=== PATIENT | male | born 1965 | race Caucasian/White ===

== ENCOUNTER 2017-04-25 17:00 | Emergency (ER) | payer BC, SELFPAY ==
[2017-04-25 17:01] VITALS: BP 170/98; PULSE 71; RESP 14; TEMP 36.8; O2SAT 98; BMI 23.6
--- NOTE | 2017-04-25 17:33 | XR_ITS ---
XR hand RT min 3V COMPARISON: None HISTORY: Crush injury to little finger TECHNIQUE: AP lateral and oblique views FINDINGS: The carpal bones and metacarpals all appear intact. There is soft tissue swelling at the distal phalanx of little finger. There is a tiny and possible a avulsion flake fracture of the head of middle phalanx of little finger. The remaining phalanges all appear intact. There is mild diffuse soft tissue swelling of the hand. There are no foreign bodies. IMPRESSION: Focal soft tissue swelling distal phalanx little finger with probable a avulsion flake fracture which could be acute or old but suggest clinical correlation for tenderness at this site.
[2017-04-25 18:01] VITALS: BP 140/80; PULSE 74; RESP 16; O2SAT 100
--- NOTE | 2017-04-25 18:31 | HMH.EDGENADL ---
ED Disposition Clinical Impression: Laceration Finger laceration Qualifiers: Encounter type: initial encounter Finger: little finger Damage to nail status: without damage Foreign body presence: without foreign body Laterality: right Qualified Code(s): S61.216A - Laceration without foreign body of right little finger without damage to nail, initial encounter Disposition: Home, Self-Care Condition on Discharge: Fair Instructions: DI for Laceration Repair Additional Instructions: keep elevated and apply ice pack for 20 minutes per hour for 24 hour. Keep dry for 2 days and then may soak in water. Change dressing daily with Bactroban ointment and take antibiotic as directed. Prescriptions: Hydrocodone/Acetaminophen [Hydrocodone-Acetamin 5-325 mg] 1 each PO Q4H PRN 3 Days #18 tab PRN Reason: Severe Pain Mupirocin [Bactroban 2% Ointment 22gm tube] 1 applicatio TP DAILY 9 Days #1 tube Sulfamethoxazole/Trimethoprim [Bactrim DS tablet] 1 each PO BID 10 Days #20 tab Referrals: Provider,Referral, MD [Primary Care Provider] - Time of Disposition: 19:19 - Critical Care Critical Care Time: No Attestation: On 04/25/17, the high probability of a clinically significant, sudden or life threatening deterioration of the following system(s) required my full and direct attention, intervention and personal management. The time I documented below is in addition to time spent performing reported procedures but includes the following listed in this critical care notation. Medical Decision Making Vital Signs: 04/25/17 17:01 04/25/17 18:01 Temperature 98.2 F Temperature Source Oral Pulse Rate [Right Brachial] 71 74 Respiratory Rate 14 16 Blood Pressure [Right Arm] 170/98 140/80 Blood Pressure Mean [Right Arm] 122 100 Blood Pressure Source [Right Arm] Automatic Cuff Automatic Cuff Blood Pressure Position [Right Arm] Sitting Sitting 02 Sat by Pulse Oximetry 98 100 Oxygen Delivery Method Room Air Room Air Orders (Tests/Meds): ED MEDICATIONS Discontinued Medications Generic Name Dose Route Start Last Admin Trade Name Freq PRN Reason Stop Dose Admin Tetanus/Reduced Diphtheria/Acell Pertussis 0.5 ml 04/25/17 17:17 04/25/17 17:25 Adacel Tdap 0.5ml Syringe IM 04/25/17 17:18 0.5 ml .ONCE ONE Administration ORDERS Category Date Time Status Hand XR right minimum 3 views [XR hand RT min 3V] Stat Exams 04/25/17 17:33 Taken - Radiology Data #1 Image(s): Hand Image Reviewed: Yes I reviewed the patient's radiology results, Yes I discussed the image results w/the radiologist Small chip off 2nd phalanx near distal phalanx - Juan A Inquiry Pt receiving controlled substance: No Juan A was queried for this patient: No Reason not queried -: Emergent pt cond-no time General Adult HPI - General Chief complaint: Wound/Laceration Stated complaint: AO [id number] LAC RIGHT LITTLE Time Seen by Provider: 04/25/17 18:20 Mode of Arrival: Ambulatory Source of Information: Patient, Spouse Limitations: No Limitations Description of Symptoms (Recalled from ER Triage Doc. by RN): Pt smashed his right pinky finger in a gate. Has lac down the side - History of Present Illness HPI narrative: Pt got his right 5th finger caught between 2 pieces of metal and has a crush injury to the tip of the finger with a 2 cm laceration Onset (ago): hour(s) Location: right, upper extremity (right 5th finger) - Related Data Previous Rx's Medication Instructions Recorded Hydrocodone/Acetaminophen 1 each PO Q4H PRN 3 Days #18 tab 04/25/17 [Hydrocodone-Acetamin 5-325 mg] Mupirocin [Bactroban 2% Ointment 1 applicatio TP DAILY 9 Days #1 04/25/17 22gm tube] tube Sulfamethoxazole/Trimethoprim 1 each PO BID 10 Days #20 tab 04/25/17 [Bactrim DS tablet] Allergies Allergy/AdvReac Type Severity Reaction Status Date / Time Penicillins Allergy Verified 04/25/17 17:15 [facility] History I have reviewed the pat
--- NOTE | 2017-04-25 18:35 | ED_ITS ---
ED Disposition Clinical Impression: Laceration Finger laceration Qualifiers: Encounter type: initial encounter Finger: little finger Damage to nail status: without damage Foreign body presence: without foreign body Laterality: right Qualified Code(s): S61.216A - Laceration without foreign body of right little finger without damage to nail, initial encounter Disposition: Home, Self-Care Condition on Discharge: Fair Instructions: DI for Laceration Repair Additional Instructions: keep elevated and apply ice pack for 20 minutes per hour for 24 hour. Keep dry for 2 days and then may soak in water. Change dressing daily with Bactroban ointment and take antibiotic as directed. Prescriptions: Hydrocodone/Acetaminophen [Hydrocodone-Acetamin 5-325 mg] 1 each PO Q4H PRN 3 Days #18 tab PRN Reason: Severe Pain Mupirocin [Bactroban 2% Ointment 22gm tube] 1 applicatio TP DAILY 9 Days # 1 tube Sulfamethoxazole/Trimethoprim [Bactrim DS tablet] 1 each PO BID 10 Days #20 tab Referrals: Provider,Referral, MD [Primary Care Provider] - Time of Disposition: 19:19 - Critical Care Critical Care Time: No Attestation: On 04/25/17, the high probability of a clinically significant, sudden or life threatening deterioration of the following system(s) required my full and direct attention, intervention and personal management. The time I documented below is in addition to time spent performing reported procedures but includes the following listed in this critical care notation. Medical Decision Making Vital Signs: 04/25/17 17:01 04/25/17 18:01 Temperature 98.2 F Temperature Source Oral Pulse Rate [Right Brachial] 71 74 Respiratory Rate 14 16 Blood Pressure [Right Arm] 170/98 140/80 Blood Pressure Mean [Right Arm] 122 100 Blood Pressure Source [Right Arm] Automatic Cuff Automatic Cuff Blood Pressure Position [Right Arm] Sitting Sitting 02 Sat by Pulse Oximetry 98 100 Oxygen Delivery Method Room Air Room Air Orders (Tests/Meds): ED MEDICATIONS Discontinued Medications Generic Name Dose Route Start Last Admin Trade Name Freq PRN Reason Stop Dose Admin Tetanus/Reduced Diphtheria/Acell Pertussis 0.5 ml 04/25/17 17:17 04/25/17 17: 25 Adacel Tdap 0.5ml Syringe IM 04/25/17 17:18 0.5 ml .ONCE ONE Administration ORDERS Category Date Time Status Hand XR right minimum 3 views [XR hand RT min 3V] Stat Exams 04/25/17 17:33 Taken - Radiology Data #1 Image(s): Hand Image Reviewed: Yes I reviewed the patient's radiology results, Yes I discussed the image results w/the radiologist Small chip off 2nd phalanx near distal phalanx - Juna A Inquiry Pt receiving controlled substance: No Juan A was queried for this patient: No Reason not queried -: Emergent pt cond-no time General Adult HPI - General Chief complaint: Wound/Laceration Stated complaint: AO [id number] LAC RIGHT LITTLE Time Seen by Provider: 04/25/17 18:20 Mode of Arrival: Ambulatory Source of Information: Patient, Spouse Limitations: No Limitations Description of Symptoms (Recalled from ER Triage Doc. by RN): Pt smashed his right pinky finger in a gate. Has lac down the side - History of Present Illness HPI narrative: Pt got his right 5th finger caught between 2 pieces of metal and has a crush injury to the tip of the finger with a 2 cm lac
[2017-04-25 19:32] VITALS: BP 138/88; PULSE 78; RESP 14; TEMP 37; O2SAT 100
== END 2017-04-25 19:36 | disposition home or self-care (01) ==
PROVIDERS: Emergency Provider General Practice
DX: S61.216A Laceration without foreign body of right little finger without damage to nail, initial encounter (principal); S67.196A Crushing injury of right little finger, initial encounter
CPT/HCPCS: 12002; 73130; 90471; 90715; 99281; 99282

== ENCOUNTER 2017-04-29 13:03 | Emergency (ER) | payer BC, SELFPAY ==
[2017-04-29 13:14] VITALS: BP 132/78; PULSE 62; RESP 20; TEMP 37; O2SAT 99; BMI 23.6
--- NOTE | 2017-04-29 13:21 | HMH.EDUTC ---
[facility] [place] Disposition Clinical Impression: Avulsion fracture of middle phalanx of finger Qualifiers: Encounter type: sequela Fracture type: closed Qualified Code(s): S62.629S - Displaced fracture of medial phalanx of unspecified finger, sequela Laceration of finger of right hand with complication Qualifiers: Encounter type: subsequent encounter Qualified Code(s): S61.411D - Laceration without foreign body of right hand, subsequent encounter Disposition: Home, Self-Care Condition on Discharge: Good Additional Instructions: Continue bactrim Start clindamycin Elevate Compress hematoma monitor and if redness moves beyond marked line, follow up immediately. Follow up immediately for ANY sign of infection as we discussed. Take pictures from same angle daily. This will help to monitor progress See Dr. hunter tomorrow due to avulsion fracture involving joint with combination of infection. Remember, risk for joint infection higher. If you can't make it to , call and reschedule but a 48 hour follow up with someone, even NVC/ER, VERY important. Prescriptions: Clindamycin HCl [Clindamycin 300mg Cap] 300 mg PO QID #40 cap Referrals: Prabhakar Storey MD [Staff Physician] - (Tomorrow at 2:30. If something happens and you can't make it, be sure to call and reschedule but per ER MD, you need seen this week and he was willing to work you in tomorrow.) Time of Disposition: 13:33 Medical Decision Making - Medical Records Medical records reviewed: Yes: I reviewed the patient's medical records. MR Comment: prior ER visit and xray on 04/25/17 Vital Signs: 04/29/17 13:14 04/29/17 13:35 Temperature 98.6 F 98 F Temperature Source Temporal Artery Scan Pulse Rate 75 Pulse Rate [Left Brachial] 62 Respiratory Rate 20 20 Blood Pressure 133/78 Blood Pressure [Left Arm] 132/78 Blood Pressure Mean [Left Arm] 96 Blood Pressure Source [Left Arm] Automatic Cuff Blood Pressure Position [Left Arm] Sitting 02 Sat by Pulse Oximetry 99 Oxygen Delivery Method Room Air - Radiology Data #1 Image(s): Hand Image Reviewed: Yes I reviewed the patient's radiology image, Yes I have reviewed radiologist's interpretation 04/25/17 xray...avulsion fracture distal end second phalanx of 5th digit right hand - Physician Consults Physician Consulted: Dr. Dawson, ER Time: 13:15 Reason -: Pt condition Comment/Response: Discussed with Dr. Dawson ER . He came and examined pt. Does not feel laceration needs to be reopened. Encouraged pt to express hematoma multiple times a day, elevate, wear finger splint again, continue bactrim, start clindamycin, follow up with ortho and take daily pictures with cell phone. Additional Consult: marybeth Garcia, spoke to his staffMarisol Time: 13:20 Reason -: Pt condition Comment/Response: Discussed HPI, today's exam, xray results and Dr. Dawson's, ER MD, concerns. Can work in patient tomorrow at 2:30. - Juan A Inquiry Pt receiving controlled substance: No [facility] [place] HPI - General Stated complaint: right little finger check for infection Time Seen by Provider: 04/29/17 13:15 Mode of Arrival: Ambulatory Source of Information: Patient Limitations: No Limitations Description of Symptoms (Recalled from Triage Doc. by RN): PT ADVISES THAT HE HAD SUTURES PLACED IN LEFT INDEX FINGER ON THURSDAY AND HE NOW BELIEVES IT TO BE INFECTED. PT HAS REDNESS AND WARMTH NOTED TO THE AREA ABOVE THE FINGERNAIL. HEENT Symptoms (Recalled from RN notes): No Resp Symptoms (Recalled from RN notes): No Skin Symptoms (Recalled from RN notes): Yes (POSSIBLE INFECTION OF LEFT INDEX FINGER) MS Symptoms (Recalled from RN notes): No Functional Status (Recalled from RN notes): N/A - History of Present Illness Provider Complaint: c/o need for finger laceration reevalution. Redness and warmth noted since sutures placed Thursday. no fever, aches, chills. Taking bactrim and using bactroban as directed. - Related Data Previous Rx's Med
[2017-04-29 13:35] VITALS: BP 133/78; PULSE 75; RESP 20; TEMP 36.6; O2SAT 98
== END 2017-04-29 13:44 | disposition home or self-care (01) ==
PROVIDERS: Emergency Provider Nurse Practitioner Family
DX: S61.216D Laceration without foreign body of right little finger without damage to nail, subsequent encounter (principal); L08.9 Local infection of the skin and subcutaneous tissue, unspecified; Z88.0 Allergy status to penicillin
CPT/HCPCS: 99201

== ENCOUNTER 2017-05-05 16:31 | Outpatient (CLI) | payer BC, SELFPAY ==
--- NOTE | 2017-05-05 18:01 | PC.NURSE ---
Addendum entered by Jaymie Blue RN 05/05/17 18:03: ERYTHEMA AND EDEMA RESOLVED. Original Note: PT DID NOT FOLLOW UP WITH ORTHO AND DOES NOT PLAN ON FOLLOWING UP WITH ORTHO. PT DENIES ANY JOINT PAIN AND HAS FULL RANGE OF MOTION OF THE JOINT.
== END 2017-05-05 18:05 | disposition home or self-care (01) ==
PROVIDERS: PCP Family Medicine; Visit Provider Nurse Practitioner Family
DX: S61.216D Laceration without foreign body of right little finger without damage to nail, subsequent encounter (principal)

== ENCOUNTER → 2019-02-09 15:04 | Outpatient (POV) | payer SELFPAY | DX: Z00.00 Encounter for general adult medical examination without abnormal findings (principal) ==

== ENCOUNTER → 2020-03-07 12:57 | Outpatient (POV) | payer SELFPAY | DX: Z00.00 Encounter for general adult medical examination without abnormal findings (principal) ==